=== PATIENT | female | born 1945 | race Caucasian/White ===

== ENCOUNTER → 2018-11-02 | Outpatient (CLI) | payer MEDICARE, OTHER | END | disposition home or self-care (01) | LOC: CFH 06:54 | PROVIDERS: ATTEND Internal Medicine Cardiovascular Disease | DX: I25.9 Chronic ischemic heart disease, unspecified (principal); I51.7 Cardiomegaly; I35.8 Other nonrheumatic aortic valve disorders; I31.3 Pericardial effusion (noninflammatory); R42 Dizziness and giddiness; Z82.49 Family history of ischemic heart disease and other diseases of the circulatory system | CPT/HCPCS: 78452; 93017; 93306; A9502 ==

== ENCOUNTER 2018-11-15 10:40 | Day surgery (SDC) | payer MEDICARE ==
[2018-11-13 13:23] LABS: BASOPHILS # (AUTO) 0.03 x10^3/uL (0-0.1); BASOPHILS % (AUTO) 0 % (0-1); EOSINOPHILS # (AUTO) 0.22 x10^3/uL (0-0.4); EOSINOPHILS % (AUTO) 3 % (1-7); LYMPHOCYTES % (AUTO) 26 % (22-44); MD NO; MEAN CORPUSCULAR HEMOGLOBIN 29.4 pg (27.0-34.8); MEAN CORPUSCULAR HGB CONC 33.3 g/dL (32.4-35.8); MEAN CORPUSCULAR VOLUME 88.4 fL (80-100); MEAN PLATELET VOLUME 7.4 fL (7.4-10.4); MONOCYTES # (AUTO) 0.74 x10^3/uL (0.2-0.8); MONOCYTES % (AUTO) 8 % (2-9); NEUTROPHILS # (AUTO) 5.66 x10^3/uL (1.8-6.8); NEUTROPHILS % (AUTO) 63 % (42-75); PLATELET COUNT 269 x10^3/uL (130-400); RED BLOOD COUNT 5.37 x10^6/uL (3.82-5.3); RED CELL DISTRIBUTION WIDTH 13.4 % (9.6-15.2)
[2018-11-13 13:29] LABS: ANION GAP 8 mmol/L (5-15); CALCIUM 9.5 mg/dL (8.5-10.1); CHLORIDE 108 mmol/L (98-107); CREATININE 1.28 mg/dL (0.55-1.02)
[~2018-11-15] VITALS: Ht 165.1 cm; Wt 92.3 kg
[~2018-11-15 10:40] MED LIST: ASCO10004 PO; ASPI-496 PO; DHA PO; DIPH25CA84 PO; FLUO10TA PO; FOLIC ACID PO; LEVO75TA5 PO; LEVO88TA4 PO; MELA5TAB19 PO; METF500T17 PO; METO25TA35 PO; MULT1CAP19 PO; POTA15TA9 PO; ROSU10TA2 PO; TRAZ-137 PO; VITA1TAB28 PO; ZINC50TA44 PO
[2018-11-15] MEDS ORDERED: SODIUM CHLORIDE 0.9% 1,000 ML IV SCH ×2 (11:00→13:00)
[2018-11-15] MEDS ORDERED: MIDAZOLAM 1 MG/ML, 5ML ONE (12:23)
[2018-11-15] MEDS ORDERED: FENTANYL PF 100 MCG/2ML ONE (12:23)
[2018-11-15] MEDS ORDERED: LIDOCAINE 2%, 20ML ONE (12:23)
== END 2018-11-15 17:52 | disposition home or self-care (01) ==
LOC: CACL 10:40
PROVIDERS: ATTEND Internal Medicine Cardiovascular Disease
DX: I25.110 Atherosclerotic heart disease of native coronary artery with unstable angina pectoris (principal); E11.9 Type 2 diabetes mellitus without complications; E78.2 Mixed hyperlipidemia; Z79.84 Long term (current) use of oral hypoglycemic drugs; Z88.1 Allergy status to other antibiotic agents; Z88.8 Allergy status to other drugs, medicaments and biological substances; Z79.82 Long term (current) use of aspirin
CPT/HCPCS: 36415; 80048; 85025; 93458; 99156; C1769; C1894; J2250; J3010; Q9967

== ENCOUNTER → 2018-11-30 | Outpatient (CLI) | payer MEDICARE | END | disposition home or self-care (01) | LOC: CFH 11:30 | DX: I20.0 Unstable angina (principal); E11.9 Type 2 diabetes mellitus without complications; E66.9 Obesity, unspecified; E78.2 Mixed hyperlipidemia; N28.9 Disorder of kidney and ureter, unspecified; R94.30 Abnormal result of cardiovascular function study, unspecified; R06.02 Shortness of breath; Z88.2 Allergy status to sulfonamides; Z88.8 Allergy status to other drugs, medicaments and biological substances | CPT/HCPCS: 71046 ==

== ENCOUNTER → 2018-12-06 | Outpatient (CLI) | payer MEDICARE | END | disposition home or self-care (01) | LOC: CFH 10:56 | PROVIDERS: ATTEND Family Medicine | DX: Z12.31 Encounter for screening mammogram for malignant neoplasm of breast (principal) | CPT/HCPCS: 77063; 77067 ==

== ENCOUNTER → 2019-01-17 | Outpatient (CLI) | payer MEDICARE ==
[~2019-01-17] MED LIST changes: +ACET325T14 PO; +ALBU2.5V NPPB; +CEFD300C37 PO; +DOCU-131 PO; +GABA100C PO; +KETO5DRO77 EACHEYE; +MECL25TA4 PO; +MOXI3DRO11 RIGHTEYE; +POTA10TA17 PO; +PRED5DRO2 EACHEYE
== END | disposition home or self-care (01) ==
LOC: CARD 14:12
PROVIDERS: ATTEND Registered Nurse
DX: R06.02 Shortness of breath (principal)
CPT/HCPCS: 94060; 94726; 94729